=== PATIENT | male | born 1985 | race Two or more races ===

== ENCOUNTER 2022-01-30 15:19 | Emergency (ER) | payer MEDICAID ==
[~2022-01-30] VITALS: Ht 172.7 cm; Wt 73.0 kg
[2022-01-30] MEDS ORDERED: ONDANSETRON 4MG ODT PO ONE (16:00)
[2022-01-30] MEDS ORDERED: IBUPROFEN 600MG TABLET PO ONE (16:00)
[2022-01-30] MEDS ORDERED: PREDNISONE 20MG TABLET PO STA (16:18)
[2022-01-30] MEDS ORDERED: IPRATROPIUM BROMIDE (0.02%) 0.5MG/2.5ML NEB HHN STA (16:18)
[2022-01-30] MEDS ORDERED: ALBUTEROL (0.083%) 2.5MG/3ML NEB HHN STA (16:18)
[2022-01-30 16:41] VITALS: BP 145/84
[2022-01-30] MEDS ORDERED: IBUP-2029 MT (16:58)
[2022-01-30] MEDS ORDERED: ALBU4TAB6 MT (17:18)
[2022-01-30] MEDS ORDERED: BENZ100C86 MT (17:18)
[2022-01-30] MEDS ORDERED: ONDA4TAB50 MT (17:18)
[2022-01-30 17:22] LABS: BASOPHILS % 0.7 % (0.0-2.0); EOSINOPHILS % 5.4 % (0.0-5.0); HEMATOCRIT. 46.5 % (42.0-52.0); LYMPHOCYTES % 43.6 % (20.0-50.0); MEAN CORPUSCULAR HEMOGLOBIN 30.8 pg (28.0-32.0); MEAN CORPUSCULAR VOLUME 89.8 fL (80.0-94.0); MEAN PLATELET VOLUME 9.5 fl (7.4-10.4); MONOCYTES % 11.3 % (2.0-8.0); PLATELET 251 x1000/uL (130-400); RED BLOOD CELL COUNT 5.18 mill/uL (4.7-6.1); RED CELL DISTRIBUTION WIDTH 12.9 % (11.6-14.6)
[2022-01-30 17:24] LABS: PROTHROMBIN TIME 11.2 sec (9.6-11.0)
[2022-01-30 17:30] LABS: CHLORIDE 109 mEq/L (98-107)
[2022-01-30] MEDS ORDERED: P50 MT (18:18)
== END 2022-01-30 17:54 | disposition home or self-care (01) ==
LOC: ER 15:43
DX: U07.1 COVID-19 (principal); R11.2 Nausea with vomiting, unspecified; R06.2 Wheezing; G40.909 Epilepsy, unspecified, not intractable, without status epilepticus
CPT/HCPCS: 36415; 71045; 80053; 83690; 85025; 85610; 94640; 99284; J7512; Q0162; Z7610